=== PATIENT | male | born 1950 | race Caucasian/White ===

== ENCOUNTER 2024-04-12 05:52 | Day surgery (SDC) | payer OTHER ==
[~2024-04-12] VITALS: Ht 180.3 cm; Wt 115.7 kg
[2024-04-12] MEDS ORDERED: CEFAZOLIN SOD 2 GM in D5W 50 ML IV ONE (07:00)
[2024-04-12] MEDS ORDERED: LR 1,000 ML IV SCH ×2 (07:00→09:00)
[2024-04-12] MEDS ORDERED: NS IRRIG SOLN 1000 ML IR ONE (07:35)
[2024-04-12] MEDS ORDERED: METOCLOPRAMIDE HCL 10 MG/2 ML VIAL ONE (07:35)
[2024-04-12] MEDS ORDERED: LIDOCAINE MPF 2% 20 MG/1 ML, 5 ML VIAL INH ONE (07:35)
[2024-04-12] MEDS ORDERED: ceFAZolin SODIUM 1 GM VIAL ONE (07:35)
[2024-04-12] MEDS ORDERED: ONDANSETRON HCL 4 MG/2 ML VIAL ONE (07:35)
[2024-04-12] MEDS ORDERED: MIDAZOLAM HCL 2 MG/2 ML VIAL (VERSED) ONE (07:35)
[2024-04-12] MEDS ORDERED: SUCCINYLCHOLINE CHLORIDE 20 MG/ML(QUELICIN) ONE (07:35)
[2024-04-12] MEDS ORDERED: ROCURONIUM BROMIDE 10 MG/ML (ZEMURON) ONE (07:35)
[2024-04-12] MEDS ORDERED: fentaNYL CITRATE/PF 100 MCG/2 ML AMP ONE (07:35)
[2024-04-12] MEDS ORDERED: LR 1,000 ML IV.SOLN IV ONE (07:35)
[2024-04-12] MEDS ORDERED: BUPIVACAINE /PF 0.25% 10 ML VIAL INJ ONE (07:35)
[2024-04-12] MEDS ORDERED: GLYCOPYRROLATE 0.2 MG/ML VIAL ONE (07:35)
[2024-04-12] MEDS ORDERED: SEVOFLURANE 15 MIN GAS INH ONE (07:35)
[2024-04-12] MEDS ORDERED: ACETAMINOPHEN I.V. 1000 MG 100 ML IV ONE (08:28)
[2024-04-12 08:52] VITALS: O2SAT 97
[2024-04-12] MEDS ORDERED: ONDANSETRON HCL 4 MG/2 ML VIAL IVP PRN (09:00)
[2024-04-12] MEDS ORDERED: HYDROmorphone 2 MG/ML VIAL IVP PRN (09:00)
[2024-04-12] MEDS ORDERED: HYDROmorphone 1 MG/ML INJ. CARTRIDGE IVP PRN (09:00)
[2024-04-12] MEDS ORDERED: HYDROcodone/ACETAMIN 5-325 MG TAB (NORCO/ VICODIN) PO PRN ×2 (09:30)
[2024-04-12] MEDS ORDERED: D5/0.45 NS 1,000 ML IV SCH (09:30)
[2024-04-12 15:03] VITALS: BP_SYST 104; PULSE 90; RESP 17
== END 2024-04-12 11:52 | disposition home or self-care (01) ==
LOC: SDS 05:52
PROVIDERS: ATTEND Colon & Rectal Surgery
DX: K40.30 Unilateral inguinal hernia, with obstruction, without gangrene, not specified as recurrent (principal); I25.10 Atherosclerotic heart disease of native coronary artery without angina pectoris; K21.9 Gastro-esophageal reflux disease without esophagitis; E78.5 Hyperlipidemia, unspecified; I48.91 Unspecified atrial fibrillation; Z88.4 Allergy status to anesthetic agent; Z87.891 Personal history of nicotine dependence; Z95.1 Presence of aortocoronary bypass graft; Z79.899 Other long term (current) drug therapy
CPT/HCPCS: 87081; 49507; C1781; J3490 ×2; J0690; J2765; J3465; J2405; J0330; J3010; J7060; J7120; J0131

== ENCOUNTER 2024-05-08 07:32 | Emergency (ER) | payer OTHER ==
[~2024-05-08] VITALS: Ht 180.3 cm; Wt 114.8 kg
[2024-05-08 07:35] VITALS: BP_SYST 120; PULSE 100; RESP 17; TEMP 96.9; O2SAT 98
[2024-05-08 08:16] LABS: BASOPHILS % (AUTO) 0.8 % (0.0-2.0); EOSINOPHILS # (AUTO) 0.1 K/uL (0.0-0.4); EOSINOPHILS % (AUTO) 2.1 % (0.0-4.0); HEMATOCRIT 47.8 % (36-54); HEMOGLOBIN 15.9 g/dL (14.0-18.0); LYMPHOCYTES # (AUTO) 0.5 K/uL (1.0-5.5); MEAN CORPUSCULAR HEMOGLOBIN 30 pg (27-31); MEAN CORPUSCULAR HGB CONC 33 % (32-36); MEAN CORPUSCULAR VOLUME 90 fL (79.0-98.0); MONOCYTES # (AUTO) 0.8 K/uL (0.0-1.0); MONOCYTES % (AUTO) 14.3 % (1.7-9.3); NEUTROPHILS # (AUTO) 4.3 K/uL (1.8-7.7); NEUTROPHILS % (AUTO) 73.8 % (40.0-70.0); PLATELET COUNT (AUTO) 185 K/uL (130-430); RED BLOOD CELL COUNT(AUTO) 5.31 MIL/uL (4.2-6.2); WHITE BLOOD COUNT (AUTO) 5.8 K/uL (4.8-10.8)
[2024-05-08 08:41] LABS: INR 1.4 (0.80-1.20); PROTHROMBIN TIME 14.6 SECS (9.5-12.5)
[2024-05-08 08:41] LABS: BILIRUBIN,URINE NEGATIVE (NEGATIVE); BLOOD, URINE NEGATIVE (NEGATIVE); CLARITY/URINE CLEAR (CLEAR); COLOR,URINE YELLOW (YELLOW); GLUCOSE,URINE NEGATIVE (NEGATIVE); KETONES,URINE TRACE (NEGATIVE); LEUKOCYTE ESTERASE ,URINE NEGATIVE (NEGATIVE); NITRITE, URINE NEGATIVE (NEGATIVE); PROTEIN URINE TRACE (NEGATIVE)
[2024-05-08 08:46] LABS: ALANINE AMINOTRANSFERASE 12 U/L (12-78); ALBUMIN 3.1 g/dL (3.4-4.8); ANION GAP 4 (5-15); ASPARTATE AMINOTRANSFERASE 20 U/L (10-37); CALCIUM 8.8 mg/dL (8.4-11.0); CARBON DIOXIDE 32 mmol/L (23-29); CHLORIDE 107 mmol/L (98-107); CREATININE 1.01 mg/dL (0.55-1.30); GLUCOSE 110 mg/dL (74-106); POTASSIUM 4.3 mmol/L (3.5-5.1); SODIUM SERUM 143 mmol/L (136-145); TOTAL BILIRUBIN 1.1 mg/dL (0.0-1.0); TOTAL PROTEIN, SERUM 6.5 g/dL (6.4-8.3); UREA NITROGEN, BLOOD 8 mg/dL (8-21)
[2024-05-08 08:53] LABS: AMYLASE 82 U/L (0-100); BILIRUBIN,DIRECT 0.3 mg/dL (0.0-0.3); LACTATE DEHYDROGENASE 155 U/L (85-227); LIPASE 80 U/L (16-77)
[2024-05-08] MEDS ORDERED: OMEP20CA15 PO (10:00)
[2024-05-08] MEDS ORDERED: TRAM50TA2 PO (10:01)
[2024-05-08 10:09] VITALS: BP_SYST 108; PULSE 108; RESP 20; TEMP 97.4; O2SAT 94
== END 2024-05-08 10:12 | disposition home or self-care (01) ==
LOC: SED 07:32
DX: R19.09 Other intra-abdominal and pelvic swelling, mass and lump (principal); K74.60 Unspecified cirrhosis of liver; Z88.4 Allergy status to anesthetic agent
CPT/HCPCS: 36415; 80048; 80076; 81001; 81003; 82150; 83605; 83615; 83690; 84484; 85025; 85610; 85730; 99284